=== PATIENT | female | born 1930 | race Caucasian/White ===

== ENCOUNTER → 2017-10-30 | Outpatient (CLI) | payer MEDICARE, OTHER ==
[~2017-10-30] MED LIST: ASPI81CH PO; Boniva150 MG; CALCA500CH PO; CALCAVITD PO; DIPATR PO; ERGO400 PO; ESTNORT PO; GLYB5 PO; IBAN2.5 PO; LEVSOD88 PO; METF500 PO; OLME20 PO; PANT40 PO; POTCHL10ER PO; PRED10 PO; RANI150 PO; omeprazole 20 mg cap PO
[2017-10-30 12:33] LABS: BASOPHILS ABSOLUTE AUTO 0.05 K/mm3 (0.00-0.23); BASOPHILS PERCENT AUTO 1 % (0-2); EOSINOPHILS PERCENT AUTO 4 % (0-6); Hematocrit 40.5 % (33.0-51.0); Hemoglobin 13.7 g/dL (11.5-16.0); IMMATURE GRAN ABSOLUTE AUTO 0.01 K/mm3 (0.00-0.10); IMMATURE GRAN PERCENT AUTO 0 % (0-1); LYMPHOCYTES ABSOLUTE AUTO 1.25 K/mm3 (0.84-5.20); LYMPHOCYTES PERCENT AUTO 24 % (21-46); MONOCYTES ABSOLUTE AUTO 0.42 K/mm3 (0.16-1.47); MONOCYTES PERCENT AUTO 8 % (4-13); Mean Corpuscular HGB 31.6 pg (26.0-34.0); Mean Corpuscular HGB Conc 33.8 g/dL (31.5-36.5); Mean Corpuscular Volume 93 fL (80-100); Mean Platelet Volume 10.8 fL (9.1-12.4); NEUTROPHILS ABSOLUTE AUTO 3.28 K/mm3 (1.96-9.15); NEUTROPHILS PERCENT AUTO 63 % (41-73); Platelet Count 142 K/mm3 (150-400); RDW Coefficient Variation 12.6 % (11.7-14.2); RDW Standard Deviation 43.5 fL (35.1-46.3); Red Blood Cell Count 4.34 M/mm3 (3.80-5.20); White Blood Cell Count 5.21 K/mm3 (4.00-11.30)
[2017-10-30 12:45] LABS: Alanine Aminotransfer (ALT/SGP 69 U/L (12-78); Albumin, Blood 3.7 g/dL (3.4-5.0); Alk Phos 74 U/L (40-126); Anion Gap 6 mmol/L (6-16); Aspartate Aminotrans (AST/SGOT 64 U/L (12-37); Bilirubin, Total 0.8 mg/dL (0.1-1.0); Blood Urea Nitrogen 13 mg/dL (8-24); Bun/Creatinine Ratio 16.7 (12.0-20.0); CO2, Blood 30 mmol/L (21-32); Calcium, Blood 9.7 mg/dL (8.5-10.1); Chloride, Blood 104 mmol/L (98-108); Creatinine, Blood 0.78 mg/dL (0.40-1.00); Globulin, Blood 3.7 g/dL (2.2-4.0); Glomerular Filtration Rate >60 (60-); Glucose, Blood 192 mg/dL (70-99); Potassium, Blood 4.4 mmol/L (3.5-5.5); Sodium, Blood 140 mmol/L (136-145); Total Protein, Blood 7.4 g/dL (6.4-8.2); Troponin I <0.017 ng/mL (0.000-0.040)
== END ==
LOC: LAB SHORT 12:28 → LAB EV 12:28
PROVIDERS: Physician Assistant
DX: R07.9 Chest pain, unspecified (principal)
CPT/HCPCS: 80053; 83690; 84484; 85025

== ENCOUNTER 2018-07-26 00:52 | Emergency (ER) | payer MEDICARE, OTHER ==
[~2018-07-26] VITALS: Ht 162.6 cm; Wt 45.4 kg
== END 2018-07-26 03:00 | disposition home or self-care (01) ==
LOC: ER 00:52
DX: M25.511 Pain in right shoulder (principal); Z79.899 Other long term (current) drug therapy; Z79.82 Long term (current) use of aspirin; E11.9 Type 2 diabetes mellitus without complications; F03.90 Unspecified dementia, unspecified severity, without behavioral disturbance, psychotic disturbance, mood disturbance, and anxiety; Z87.891 Personal history of nicotine dependence
CPT/HCPCS: 73030; 99283-25

== ENCOUNTER 2019-01-24 10:00 | Emergency (ER) | payer MEDICARE, OTHER ==
[~2019-01-24] VITALS: Ht 152.4 cm; Wt 49.9 kg
[~2019-01-24 10:00] MED LIST changes: -ASPI81CH PO; -CALCAVITD PO; -ERGO400 PO; -LEVSOD88 PO; -POTCHL10ER PO; -omeprazole 20 mg cap PO
[2019-01-24 10:38] LABS: BASOPHILS ABSOLUTE AUTO 0.04 K/mm3 (0.00-0.23); BASOPHILS PERCENT AUTO 1 % (0-2); EOSINOPHILS ABSOLUTE AUTO 0.27 K/mm3 (0.00-0.68); EOSINOPHILS PERCENT AUTO 4 % (0-6); Hematocrit 38.4 % (33.0-51.0); Hemoglobin 12.6 g/dL (11.5-16.0); IMMATURE GRAN ABSOLUTE AUTO 0.01 K/mm3 (0.00-0.10); IMMATURE GRAN PERCENT AUTO 0 % (0-1); LYMPHOCYTES ABSOLUTE AUTO 1.22 K/mm3 (0.84-5.20); LYMPHOCYTES PERCENT AUTO 18 % (21-46); MONOCYTES ABSOLUTE AUTO 0.56 K/mm3 (0.16-1.47); MONOCYTES PERCENT AUTO 8 % (4-13); Mean Corpuscular HGB 31.5 pg (26.0-34.0); Mean Corpuscular HGB Conc 32.8 g/dL (31.5-36.5); Mean Corpuscular Volume 96 fL (80-100); Mean Platelet Volume 10.3 fL (9.1-12.4); NEUTROPHILS ABSOLUTE AUTO 4.66 K/mm3 (1.96-9.15); NEUTROPHILS PERCENT AUTO 69 % (41-73); Platelet Count 126 K/mm3 (150-400); RDW Coefficient Variation 12.1 % (11.7-14.2); RDW Standard Deviation 42.5 fL (35.1-46.3); White Blood Cell Count 6.76 K/mm3 (4.00-11.30)
[2019-01-24 10:51] LABS: Alanine Aminotransfer (ALT/SGP 46 U/L (12-78); Albumin, Blood 3.2 g/dL (3.4-5.0); Albumin/Globulin Ratio 0.9 (0.8-1.8); Alk Phos 70 U/L (50-136); Anion Gap 6 mmol/L (6-16); Aspartate Aminotrans (AST/SGOT 45 U/L (12-37); Bilirubin, Total 0.8 mg/dL (0.1-1.0); Blood Urea Nitrogen 17 mg/dL (8-24); Bun/Creatinine Ratio 27.2 (12.0-20.0); CO2, Blood 27 mmol/L (21-32); Calcium, Blood 8.6 mg/dL (8.5-10.1); Chloride, Blood 107 mmol/L (98-108); Creatinine, Blood 0.62 mg/dL (0.40-1.00); Globulin, Blood 3.6 g/dL (2.2-4.0); Glomerular Filtration Rate >60 (60-); Glucose, Blood 144 mg/dL (70-99); Potassium, Blood 3.8 mmol/L (3.5-5.5); Sodium, Blood 140 mmol/L (136-145); Total Protein, Blood 6.8 g/dL (6.4-8.2)
[2019-01-24] MEDS ORDERED: Cipro250 MG PO (14:40)
== END 2019-01-24 15:09 | disposition home or self-care (01) ==
LOC: ER 10:00
PROVIDERS: Emergency Medicine
DX: S42.214A Unspecified nondisplaced fracture of surgical neck of right humerus, initial encounter for closed fracture (principal); F03.90 Unspecified dementia, unspecified severity, without behavioral disturbance, psychotic disturbance, mood disturbance, and anxiety; E11.9 Type 2 diabetes mellitus without complications; Z79.899 Other long term (current) drug therapy; Z87.891 Personal history of nicotine dependence; Z87.81 Personal history of (healed) traumatic fracture; W18.30XA Fall on same level, unspecified, initial encounter
CPT/HCPCS: 36415; 70450; 72125; 73030; 80053; 85025; 93005; 93010; 96374; 96375; 99284-25; J2405; J3010

== ENCOUNTER → 2019-02-05 | Outpatient (CLI) | payer MEDICARE, OTHER ==
[~2019-02-05] MED LIST changes: +Aspirin EC81 MG PO; +CHOL10002 PO; +Cipro250 MG PO; +LEVSOD50 PO; +OMEP20ER PO; +POTCHL10ER PO; +THERA1 EACH PO
[2019-02-09 14:06] LABS: Stool Occult Bld Immuno 1 Negative (NEGATIVE)
== END | disposition home or self-care (01) ==
LOC: LAB EV 09:00
PROVIDERS: Physician Assistant
DX: R19.5 Other fecal abnormalities (principal)
CPT/HCPCS: 82274

== ENCOUNTER 2019-02-10 11:55 | Inpatient (IN) | payer MEDICARE, OTHER ==
[~2019-02-10] VITALS: Ht 149.9 cm; Wt 47.6 kg
[~2019-02-10 11:55] MED LIST changes: -Aspirin EC81 MG PO; -CHOL10002 PO; -LEVSOD50 PO; -OMEP20ER PO; -POTCHL10ER PO; -THERA1 EACH PO
[2019-02-10 12:34] LABS: BASOPHILS ABSOLUTE AUTO 0.04 K/mm3 (0.00-0.23); BASOPHILS PERCENT AUTO 0 % (0-2); EOSINOPHILS ABSOLUTE AUTO 0.33 K/mm3 (0.00-0.68); EOSINOPHILS PERCENT AUTO 4 % (0-6); Hematocrit 35.5 % (33.0-51.0); Hemoglobin 11.7 g/dL (11.5-16.0); IMMATURE GRAN ABSOLUTE AUTO 0.04 K/mm3 (0.00-0.10); IMMATURE GRAN PERCENT AUTO 0 % (0-1); LYMPHOCYTES ABSOLUTE AUTO 0.93 K/mm3 (0.84-5.20); LYMPHOCYTES PERCENT AUTO 10 % (21-46); MONOCYTES ABSOLUTE AUTO 0.63 K/mm3 (0.16-1.47); MONOCYTES PERCENT AUTO 7 % (4-13); Mean Corpuscular HGB 32.3 pg (26.0-34.0); Mean Platelet Volume 10.2 fL (9.1-12.4); NEUTROPHILS ABSOLUTE AUTO 7.09 K/mm3 (1.96-9.15); NEUTROPHILS PERCENT AUTO 78 % (41-73); Platelet Count 136 K/mm3 (150-400); RDW Coefficient Variation 12.8 % (11.7-14.2); RDW Standard Deviation 45.8 fL (35.1-46.3); Red Blood Cell Count 3.62 M/mm3 (3.80-5.20); White Blood Cell Count 9.06 K/mm3 (4.00-11.30)
[2019-02-10 12:36] LABS: Mean Corpuscular Volume 98 fL (80-100)
[2019-02-10 12:48] LABS: Alanine Aminotransfer (ALT/SGP 36 U/L (12-78); Albumin, Blood 3.1 g/dL (3.4-5.0); Albumin/Globulin Ratio 0.8 (0.8-1.8); Alk Phos 102 U/L (50-136); Anion Gap 5 mmol/L (6-16); Aspartate Aminotrans (AST/SGOT 28 U/L (12-37); Bilirubin, Total 1.3 mg/dL (0.1-1.0); Blood Urea Nitrogen 22 mg/dL (8-24); Bun/Creatinine Ratio 32.9 (12.0-20.0); CO2, Blood 27 mmol/L (21-32); Calcium, Blood 8.9 mg/dL (8.5-10.1); Chloride, Blood 106 mmol/L (98-108); Creatinine, Blood 0.67 mg/dL (0.40-1.00); Globulin, Blood 3.8 g/dL (2.2-4.0); Glomerular Filtration Rate >60 (60-); Glucose, Blood 217 mg/dL (70-99); Potassium, Blood 4.1 mmol/L (3.5-5.5); Sodium, Blood 138 mmol/L (136-145); Total Protein, Blood 6.9 g/dL (6.4-8.2)
[2019-02-10 13:24] LABS: Source, Urine Catheter
[2019-02-10 13:33] LABS: Blood, Urine 1+ (Neg); Glucose Qualitative, Urine 3+ (Neg); Ketones, Urine Neg (Neg); Leukocyte Esterase, Urine 1+ (Neg); Nitrite, Urine Neg (Neg); Protein, Urine 1+ (Neg); Specific Gravity, Urine 1.025 (1.003-1.022); Urobilinogen, Urine 2+ (Normal)
[2019-02-10 13:42] LABS: Bilirubin, Urine 1+ (Neg)
[2019-02-10 13:56] LABS: Appearance, Urine Hazy (Clear); Color, Urine Amber (P-Yellow)
[2019-02-10 13:58] LABS: Bacteria Mod /hpf; Mucus Heavy (0-Heavy); Squamous Epithelial Cells Not Seen /hpf (Few)
[2019-02-10] MEDS ORDERED: LEVSOD50 PO (14:53)
[2019-02-10] MEDS ORDERED: POTCHL10ER PO (14:53)
[2019-02-10] MEDS ORDERED: OMEP20ER PO (14:54)
[2019-02-10] MEDS ORDERED: Aspirin EC81 MG PO (14:55)
[2019-02-10] MEDS ORDERED: CHOL10002 PO (15:03)
[2019-02-10] MEDS ORDERED: THERA1 EACH PO (15:03)
--- NOTE | 2019-02-10 18:07 | NUR ---
ADMIT NEW ER ADMIT WITH R HIP FX R/T A FALL. PT CONFUSED AT BASELINE WITH HX OF DEMENTIA. PT ABLE TO VERBALIZE SOME WORDS, BUT IS MOSTLY NONSENSICAL. PT MEDICATED WITH 50 MCG FENTANYL IN ER AND APPEARS TO BE COMFORTABLE AT REST. IVF INFUSING PER ORDERS. HYDRALAZINE GIVEN X1 FOR HTN. FAMILY AT BEDSIDE FOR SUPPORT AND IS CURRENTLY ASSISTING PT WITH HER DINNER TRAY. FAMILY REPORTS SHE DOES NOT HAVE DIFFICULTY SWALLOWING AND DOES WELL WITH FINGER FOODS. PLANNING TO PLACE OCONNELL PER ORDERS ONCE PT IS FINISHED EATING. ATTENDS CURRENTLY IN PLACE AND DRY. MEPILEX TO COCCYX FOR REDNESS AND SORE. MEPILEX DRESSINGS ALSO APPLIED TO BOTH HEELS FOR PROTECTION AND BLE ELEVATED ON PILLOWS. WEANED TO 1L O2 VIA NC--ER PLACED AFTER GIVING PAIN MEDICATION. LUNGS CLEAR, BUT DIMINISHED IN THE BASES. ER REPORTS ORTHO WAS CONSULTED AND PT WAS A NONSURGICAL CANDIDATE. ORTHO DOCTOR TO SEE PT IN THE MORNING. CALL LIGHT WITHIN REACH AND BED ALARM IN PLACE FOR SAFETY.
--- NOTE | 2019-02-11 00:24 | NUR ---
PT CONFUSED AND TEARFUL AT THIS TIME. PT STATES "I DO NOT KNOW WHERE I AM" AND "I DO NOT KNOW WHAT IS WRONG WITH ME". PT APPEARS ANXIOUS SHE IS PICKING AT LINES/TUBES. IV WRAPPED IN KARLA WRAP. STATES SHE DOES NOT WANT TO LIVE ANYMORE. PT REORIENTED AND COMFORTED. PT REPORTS BEING PAINFUL. WILL MEDICATE PER EMAR.
[2019-02-11 05:18] LABS: BASOPHILS ABSOLUTE AUTO 0.04 K/mm3 (0.00-0.23); BASOPHILS PERCENT AUTO 1 % (0-2); EOSINOPHILS ABSOLUTE AUTO 0.42 K/mm3 (0.00-0.68); EOSINOPHILS PERCENT AUTO 5 % (0-6); Hematocrit 32.8 % (33.0-51.0); Hemoglobin 10.9 g/dL (11.5-16.0); IMMATURE GRAN ABSOLUTE AUTO 0.02 K/mm3 (0.00-0.10); IMMATURE GRAN PERCENT AUTO 0 % (0-1); LYMPHOCYTES ABSOLUTE AUTO 1.16 K/mm3 (0.84-5.20); LYMPHOCYTES PERCENT AUTO 13 % (21-46); MONOCYTES PERCENT AUTO 6 % (4-13); Mean Corpuscular HGB 32.3 pg (26.0-34.0); Mean Corpuscular HGB Conc 33.2 g/dL (31.5-36.5); Mean Corpuscular Volume 97 fL (80-100); Mean Platelet Volume 10.5 fL (9.1-12.4); NEUTROPHILS ABSOLUTE AUTO 6.55 K/mm3 (1.96-9.15); NEUTROPHILS PERCENT AUTO 75 % (41-73); Platelet Count 128 K/mm3 (150-400); RDW Coefficient Variation 12.8 % (11.7-14.2); RDW Standard Deviation 45.8 fL (35.1-46.3); Red Blood Cell Count 3.37 M/mm3 (3.80-5.20); White Blood Cell Count 8.69 K/mm3 (4.00-11.30)
[2019-02-11 05:36] LABS: Anion Gap 6 mmol/L (6-16); Blood Urea Nitrogen 17 mg/dL (8-24); Bun/Creatinine Ratio 29.4 (12.0-20.0); CO2, Blood 26 mmol/L (21-32); Calcium, Blood 8.3 mg/dL (8.5-10.1); Chloride, Blood 105 mmol/L (98-108); Creatinine, Blood 0.58 mg/dL (0.40-1.00); Glomerular Filtration Rate >60 (60-); Glucose, Blood 177 mg/dL (70-99); Sodium, Blood 137 mmol/L (136-145)
--- NOTE | 2019-02-11 08:35 | NUR ---
SHIFT SUMMARY: PT CONFUSED T/O NIGHT. ORIENTED TO SELF. FLACC SCALE SHOWS PAIN 5/10. PT UNABLE TO GIVE VERBAL RESPONSE. GIVEN NORCO CRUSHED IN APPLESAUCE. MEDICATED TWICE. ATTEMPTED TO GIVE PILLS WHOLE AND PT WAS POCKETING THEM IN MOUTH OR CHEWING. PT REFUSING PAIN MEDICATION THIS MORNING. PT APPEARS AGITATED; PULLING AT TUBES/LINES AND RAISING VOICE AT STAFF TO "GO AWAY". PT CONFUSED TO SURROUNDINGS AND EVENT. PT WANTING TO GET OUT OF BED THIS MORNING. REPEATING "I CAN'T DO ANYTHING" AND GETTING TEARFUL. MEPILEX INTACT ON BOTTOM AND HEELS.
--- NOTE | 2019-02-11 16:26 | NUR ---
right arm sling placed, patient cheerful, cooperative eating yogurt and jello
--- NOTE | 2019-02-11 17:14 | NUR ---
SUMMARY FAMILY MEMBERS AT BEDSIDE THROUGHOUT SHIFT. PATIENT CONFUSED, PLEASANT AND COOPERATIVE. NO ATTEMPTS TO GET OUT OF BED. BED ALARM IN PLACE.
--- NOTE | 2019-02-11 17:20 | NUR ---
0755 BP BLOOD PRESSURE RECHECKED DUE TO PRN HYDRALAZINE ORDER. BP 147/78 AT THIS TIME. WILL CONTINUE TO MONITOR
[2019-02-12 04:34] LABS: Anion Gap 6 mmol/L (6-16); Blood Urea Nitrogen 16 mg/dL (8-24); Bun/Creatinine Ratio 27.4 (12.0-20.0); CO2, Blood 26 mmol/L (21-32); Calcium, Blood 8.5 mg/dL (8.5-10.1); Chloride, Blood 104 mmol/L (98-108); Creatinine, Blood 0.59 mg/dL (0.40-1.00); Glomerular Filtration Rate >60 (60-); Glucose, Blood 204 mg/dL (70-99); Sodium, Blood 136 mmol/L (136-145)
--- NOTE | 2019-02-12 07:05 | NUR ---
SUMMARY NO ACUTE CHANGES NOTED THROUGH THE NIGHT. VSS. TOLERATING PO INTAKE. PT DENIES PAIN WHEN ASKED. CALL LIGHT IN REACH.
--- NOTE | 2019-02-12 17:54 | NUR ---
SUMMARY OOB TO CHAIR, EATING DINNER, IN ROOM, DENIED ANY PAIN OR ANY DISCOMFORT TODAY, PLAN FOR SNF TOMORROW, PT AND DAUGHTER AWARE, NO ACUTE CHANGES THIS SHIFT.
--- NOTE | 2019-02-12 22:44 | NUR ---
2244: PT SCREAMING OUT AND YELLING FOR HER GURMEET WHEN RN ENTERS ROOM. PT INSISTING SHE NEEDS TO GET UP AND WALK AROUND; ATTEMPTS TO REORIENT TO SITUATION UNSUCCESFUL. PT MEDICATED WITH 1 TAB NORCO AND RN SITS IN PT ROOM TO REASSURE AND DISTRACT. TV MUSIC TURNED ON TO LOW VOLUME, PT POSITIONED FOR COMFORT, BATHROOM LIGHT ON LOW AND STUFFED ANIMAL GIVEN FOR COMFORT. PT CONTINUES TO YELL OUT.
--- NOTE | 2019-02-13 05:19 | NUR ---
SUMMARY: ADMIT DAY 4 RIGHT HIP AND PUBIC RAMUS FX ON HOSPITALIST SERVICE; ORTHO CONSULT COMPLETED AND PT IS NON-SURGICAL STATUS. VSS, BASELINE HTN, AFEBRILE, ROOM AIR. 2 MAX ASSIST FROM CHAIR TO BED AND DALI REMAINS IN SLING FROM PREVIOUS FX. PAIN CONTROLLED WITH 1 TAB NORCO. PT YELLS OUT IN NOC AND IS AGITATED AND CONFUSED BUT MODERATELY EASY TO TALK DOWN. INCONTINENT AT TIMES AND MEPILEX APPLIED TO COCCYX. BM THIS SHIFT. PLAN TO DC TO SNF AND HAVE HOME HEALTH F/U FOR MORE CARE AT HOME.
--- NOTE | 2019-02-13 12:40 | NUR ---
REPORT CALLED TO VALERIE MARTINEZ AT [facility].
--- NOTE | 2019-02-13 13:43 | NUR ---
PATIENT TRANSFERRED TO [facility] VIA [facility] AT THIS TIME. SPOUSE AND DAUGHTER TO FOLLOW.
== END 2019-02-13 13:43 | DRG 536 ==
LOC: ER 11:55 → SURS 16:02
PROVIDERS: Emergency Medicine; Student in an Organized Health Care Education/Training Program; ADMIT Family Medicine
DX: S32.401A Unspecified fracture of right acetabulum, initial encounter for closed fracture (principal); I10 Essential (primary) hypertension; E03.9 Hypothyroidism, unspecified; E11.9 Type 2 diabetes mellitus without complications; M81.0 Age-related osteoporosis without current pathological fracture; K21.9 Gastro-esophageal reflux disease without esophagitis; G30.9 Alzheimer's disease, unspecified; F02.80 Dementia in other diseases classified elsewhere, unspecified severity, without behavioral disturbance, psychotic disturbance, mood disturbance, and anxiety; Z66 Do not resuscitate; Z79.82 Long term (current) use of aspirin; Z79.899 Other long term (current) drug therapy; Z87.891 Personal history of nicotine dependence
CPT/HCPCS: 36415; 71046; 72192; 73502; 80048; 80053; 81001; 85025; 87086; 93005; 93010; 96365; 96375; 97110; 97112; 97162; 97530; 99285-25; A9270; A9270-GY; J0360; J0696; J1650; J3010; P9612

== ENCOUNTER → 2019-06-09 | Outpatient (CLI) | payer MEDICARE, OTHER ==
[~2019-06-09] MED LIST changes: +Aspirin EC81 MG PO; +CHOL10002 PO; +LEVSOD50 PO; +OMEP20ER PO; +POTCHL10ER PO; +THERA1 EACH PO
== END | disposition home or self-care (01) ==
LOC: OLS 19:30 → LAB SHORT 19:30
DX: R19.7 Diarrhea, unspecified (principal)
CPT/HCPCS: 87493

== ENCOUNTER → 2019-06-18 | Outpatient (CLI) | payer MEDICARE, OTHER ==
[~2019-06-18] MED LIST changes: +CEPH500 PO; +ONDA4ODT MM
[2019-06-22 11:30] LABS: Adenovirus F 40/41 Not Detected (NOT DETECT); Astrovirus Not Detected (NOT DETECT); Campylobacter Sp Not Detected (NOT DETECT); Cryptosporidium Not Detected (NOT DETECT); Cyclospora Cayetanensis Not Detected (NOT DETECT); E. Coli O157 Not Detected (NOT DETECT); Entamoeba Histolytica Not Detected (NOT DETECT); Enteroaggregative E. coli-EAEC Not Detected (NOT DETECT); Enteropathogenic E. coli-EPEC Not Detected (NOT DETECT); Enterotoxigenic E. coli-ETEC Not Detected (NOT DETECT); Giardia Lamblia Not Detected (NOT DETECT); Norovirus GI/GII Not Detected (NOT DETECT); Plesiomonas Shigelloides Not Detected (NOT DETECT); Rotavirus A Not Detected (NOT DETECT); Salmonella Sp Not Detected (NOT DETECT); Sapovirus Not Detected (NOT DETECT); Shiga Toxin-prod E. coli-STEC Not Detected (NOT DETECT); Shigella/Enteroin E. coli-EIEC Not Detected (NOT DETECT); Vibrio Cholerae Not Detected (NOT DETECT); Vibrio Sp Not Detected (NOT DETECT); Yersinia Enterocolitica Not Detected (NOT DETECT)
== END | disposition home or self-care (01) ==
LOC: LAB SHORT 09:30 → LAB 09:30
PROVIDERS: Surgery
DX: R19.7 Diarrhea, unspecified (principal)
CPT/HCPCS: 0097U

== ENCOUNTER 2019-07-17 16:13 | Emergency (ER) | payer MEDICARE, OTHER ==
[~2019-07-17] VITALS: Ht 154.9 cm; Wt 45.4 kg
[~2019-07-17 16:13] MED LIST changes: -CEPH500 PO; -ONDA4ODT MM
--- NOTE | 2019-07-17 17:33 | NUR ---
Brief Pt visit this evening. Received call from Hospice gis web developer Aric and discussed case. Aric requests Palliative Care for therapeutic and symptom management visits. Spoke with Dr Andrade and discussed case. Accompanied Dr Andrade to Pt's room. Family at bedside as Dr Andrade educates on diagnostic procedures that are recommended. Family is agreeable to most of the posssible diagnostic procedures that may possibly be required. If GI is consulted and endoscopy is required family reports they will need to discuss further before making the decision for endoscopy. This RN stayed behind for therapeutic visit and to answer questions and concerns. Family report their immediate goal is for Pt to remain comfortable. Family report Pt has not vomitted since being in the ED and Pt appears more comfortable. No other concerns reported at this time. Palliative Care will remain available.
[2019-07-17 17:57] LABS: BASOPHILS ABSOLUTE AUTO 0.04 K/mm3 (0.00-0.23); BASOPHILS PERCENT AUTO 0 % (0-2); EOSINOPHILS ABSOLUTE AUTO 0.07 K/mm3 (0.00-0.68); EOSINOPHILS PERCENT AUTO 1 % (0-6); Hematocrit 37.1 % (33.0-51.0); Hemoglobin 12.1 g/dL (11.5-16.0); IMMATURE GRAN ABSOLUTE AUTO 0.06 K/mm3 (0.00-0.10); IMMATURE GRAN PERCENT AUTO 1 % (0-1); LYMPHOCYTES ABSOLUTE AUTO 0.73 K/mm3 (0.84-5.20); LYMPHOCYTES PERCENT AUTO 6 % (21-46); MONOCYTES ABSOLUTE AUTO 0.73 K/mm3 (0.16-1.47); MONOCYTES PERCENT AUTO 6 % (4-13); Mean Corpuscular HGB 30.9 pg (26.0-34.0); Mean Corpuscular HGB Conc 32.6 g/dL (31.5-36.5); Mean Corpuscular Volume 95 fL (80-100); Mean Platelet Volume 9.6 fL (9.1-12.4); NEUTROPHILS ABSOLUTE AUTO 11.18 K/mm3 (1.96-9.15); NEUTROPHILS PERCENT AUTO 87 % (41-73); Platelet Count 219 K/mm3 (150-400); RDW Coefficient Variation 14.1 % (11.7-14.2); RDW Standard Deviation 49.4 fL (35.1-46.3); Red Blood Cell Count 3.92 M/mm3 (3.80-5.20); White Blood Cell Count 12.81 K/mm3 (4.00-11.30)
[2019-07-17 18:36] LABS: Alanine Aminotransfer (ALT/SGP 26 U/L (12-78); Albumin, Blood 2.6 g/dL (3.4-5.0); Albumin/Globulin Ratio 0.8 (0.8-1.8); Alk Phos 82 U/L (50-136); Anion Gap 5 mmol/L (6-16); Aspartate Aminotrans (AST/SGOT 37 U/L (12-37); Bilirubin, Total 0.6 mg/dL (0.1-1.0); Blood Urea Nitrogen 14 mg/dL (8-24); Bun/Creatinine Ratio 27.5 (12.0-20.0); CO2, Blood 30 mmol/L (21-32); Calcium, Blood 8.7 mg/dL (8.5-10.1); Chloride, Blood 102 mmol/L (98-108); Creatinine, Blood 0.51 mg/dL (0.40-1.00); Globulin, Blood 3.2 g/dL (2.2-4.0); Glomerular Filtration Rate >60 (60-); Glucose, Blood 158 mg/dL (70-99); Potassium, Blood 4.1 mmol/L (3.5-5.5); Sodium, Blood 137 mmol/L (136-145); Total Protein, Blood 5.8 g/dL (6.4-8.2)
[2019-07-17 19:28] LABS: Influenza A Negative (NEGATIVE); Influenza B Negative (NEGATIVE)
[2019-07-17 19:33] LABS: Source, Urine Catheter
[2019-07-17 19:39] LABS: Bilirubin, Urine Neg (Neg); Blood, Urine 2+ (Neg); Glucose Qualitative, Urine Neg (Neg); Ketones, Urine 1+ (Neg); Leukocyte Esterase, Urine 3+ (Neg); Nitrite, Urine Pos (Neg); Protein, Urine 2+ (Neg); Urobilinogen, Urine NORM (Normal)
[2019-07-17 19:51] LABS: Appearance, Urine Hazy (Clear); Color, Urine Yellow (P-Yellow)
[2019-07-17 19:52] LABS: Bacteria Many /hpf; Red Blood Cells, Urine 0-2 /hpf (0-2); Squamous Epithelial Cells Not Seen /hpf (Few)
[2019-07-17 19:53] LABS: Amorphous Light (0-Heavy); Transitional Epithelial Cells Few /hpf (0-Rare)
[2019-07-17] MEDS ORDERED: ONDA4ODT MM (20:03)
[2019-07-17] MEDS ORDERED: CEPH500 PO (20:03)
== END 2019-07-17 21:40 | disposition home or self-care (01) ==
LOC: ER 16:13
PROVIDERS: Emergency Medicine
DX: N39.0 Urinary tract infection, site not specified (principal); E11.9 Type 2 diabetes mellitus without complications; I10 Essential (primary) hypertension; K21.9 Gastro-esophageal reflux disease without esophagitis; M81.0 Age-related osteoporosis without current pathological fracture; E03.9 Hypothyroidism, unspecified; G30.9 Alzheimer's disease, unspecified; F02.80 Dementia in other diseases classified elsewhere, unspecified severity, without behavioral disturbance, psychotic disturbance, mood disturbance, and anxiety; Z87.891 Personal history of nicotine dependence
CPT/HCPCS: 36415; 74018; 80053; 81001; 82272; 85025; 87077; 87086; 87186; 87804; 96361; 96365; 96375; 99284-25; A9270-GY; J0696; J2405; J7030; P9612